=== PATIENT | male | born 1940 | race African-American/Black ===

== ENCOUNTER 2021-07-24 10:21 | Inpatient (IN) | payer OTHER ==
[~2021-07-24] VITALS: Ht 172.7 cm; Wt 68.5 kg
[2021-07-24] MEDS ORDERED: ACETAMINOPHEN 325MG TABLET PO STA (11:42)
[2021-07-24 12:57] LABS: BASOPHILS % 0.3 % (0.0-2.0); HEMATOCRIT. 44.4 % (42.0-52.0); HEMOGLOBIN. 13.3 g/dL (14.0-18.0); LYMPHOCYTES % 14.1 % (20.0-50.0); MEAN CORPUSCULAR HEMOGLOBIN 22.3 pg (28.0-32.0); MEAN CORPUSCULAR VOLUME 74.5 fL (80.0-94.0); MEAN PLATELET VOLUME 8.2 fl (7.4-10.4); MONOCYTES % 5.4 % (2.0-8.0); NEUTROPHILS % 80.2 % (40.0-76.0); PLATELET 285 x1000/uL (130-400); RED BLOOD CELL COUNT 5.96 mill/uL (4.7-6.1); RED CELL DISTRIBUTION WIDTH 16.2 % (11.6-14.6)
[2021-07-24 13:05] LABS: CHLORIDE 96 mEq/L (98-107)
[2021-07-24 19:04] LABS: CLARITY URINE CLEAR (CLEAR); COLOR URINE DARK YELLOW (YELLOW); KETONES URINE TRACE (NEGATIVE); PROTEIN URINE 2+ (NEGATIVE); SPECIFIC GRAVITY URINE 1.021 (1.005-1.030)
[2021-07-24 19:05] LABS: LEUKOCYTE ESTERASE URINE TRACE (NEGATIVE); NITRITE URINE NEGATIVE (NEGATIVE); OCCULT BLOOD URINE NEGATIVE (NEGATIVE)
[2021-07-24] MEDS ORDERED: MAGNESIUM 2 G PREMIX 50 ML IV NR (20:30)
[2021-07-24] MEDS ORDERED: POTASSIUM CHLORIDE INJ 40 MEQ in DEXT 5% WATER 500 ML IV ONE (20:30)
[2021-07-24] MEDS: KCL 20MEQ/100ML PREMIX 100 ML IV SCH ×2 (21:52→23:44)
[2021-07-25] MEDS: CLONIDINE 0.1MG TABLET PO PRN (01:52)
[2021-07-25] MEDS ORDERED: POTASSIUM CHLORIDE INJ 40 MEQ in DEXT 5% WATER 250 ML IV ONE ×2 (11:15→21:00)
[2021-07-25] MEDS ORDERED: ONDANSETRON HCL 4MG/2ML INJ IV PRN (11:45)
[2021-07-25] MEDS ORDERED: ACETAMINOPHEN 325MG TABLET PO PRN (11:45)
[2021-07-25 12:14] LABS: CHLORIDE 96 mEq/L (98-107)
[2021-07-25] MEDS ORDERED: VANCOMYCIN 1250MG in DEXTROSE 5% WATER 250ML IV ONE (12:30)
[2021-07-25] MEDS ORDERED: VANCOMYCIN 1500MG in DEXTROSE 5% WATER 250ML IV ONE (12:30)
[2021-07-25] MEDS: ENOXAPARIN 40MG/0.4ML SYR SUBCUT SCH (12:53)
[2021-07-25] MEDS: KCL 20MEQ/100ML X 2 FOR TOTAL KCL 40MEQ/200ML IV SCH ×2 (12:53→16:45)
[2021-07-25] MEDS ORDERED: VANCOMYCIN 1G PREMIX 200 ML IV SCH (14:00)
[2021-07-25 17:48] LABS: CHLORIDE 98 mEq/L (98-107)
[2021-07-25] MEDS ORDERED: POTASSIUM CHLORIDE 20MEQ TABLET SR PO NR (21:00)
[2021-07-25] MEDS: METOPROLOL TARTRATE 50MG TABLET PO SCH (21:47)
[2021-07-25] MEDS: KCL 20MEQ/100ML PREMIX 100 ML IV SCH (22:00)
[2021-07-26] MEDS ORDERED: VANCOMYCIN 750 MG in DEXT 5% WATER 250 ML IV SCH
[2021-07-26] MEDS: KCL 20MEQ/100ML PREMIX 100 ML IV SCH (00:30)
[2021-07-26 05:05] VITALS: BP 134/74
[2021-07-26 08:00] VITALS: BP 137/82
[2021-07-26] MEDS: METOPROLOL TARTRATE 50MG TABLET PO SCH ×2 (10:48→21:33)
[2021-07-26] MEDS ORDERED: VANCOMYCIN 1G PREMIX 200 ML IV SCH ×2 (11:00)
[2021-07-26] MEDS ORDERED: PNEUMOC 13-VAL CONJ-DIP CRM/PF 0.5 ML DISP.SYRIN IM ONE (11:45)
[2021-07-26 12:06] VITALS: BP 122/83
[2021-07-26] MEDS: ENOXAPARIN 40MG/0.4ML SYR SUBCUT SCH (12:20)
[2021-07-26] MEDS ORDERED: PNEUMOCOCCAL 23-VAL P-SAC VAC 0.5 ML IM ONE (15:00)
[2021-07-26 16:07] VITALS: BP 115/73
[2021-07-26 17:44] LABS: BASOPHILS % 0.4 % (0.0-2.0); EOSINOPHILS % 0.1 % (0.0-5.0); HEMATOCRIT. 45.7 % (42.0-52.0); HEMOGLOBIN. 13.2 g/dL (14.0-18.0); LYMPHOCYTES % 12.1 % (20.0-50.0); MEAN CORPUSCULAR HEMOGLOBIN 21.5 pg (28.0-32.0); MEAN CORPUSCULAR VOLUME 74.7 fL (80.0-94.0); MEAN PLATELET VOLUME 8.5 fl (7.4-10.4); MONOCYTES % 4.7 % (2.0-8.0); NEUTROPHILS % 82.7 % (40.0-76.0); PLATELET 261 x1000/uL (130-400); RED BLOOD CELL COUNT 6.12 mill/uL (4.7-6.1); RED CELL DISTRIBUTION WIDTH 16.3 % (11.6-14.6)
[2021-07-26 17:48] LABS: CHLORIDE 99 mEq/L (98-107)
[2021-07-26] MEDS: VANCOMYCIN 1G PREMIX 200 ML IV SCH (19:14)
[2021-07-26 20:00] VITALS: BP 145/74
[2021-07-27] VITALS (7 sets, daily range): BP systolic 118–174; BP diastolic 66–91
[2021-07-27] MEDS: CLONIDINE 0.1MG TABLET PO PRN (00:38)
[2021-07-27] MEDS: METOPROLOL TARTRATE 50MG TABLET PO SCH ×2 (08:43→20:55)
[2021-07-27] MEDS: VANCOMYCIN 1G PREMIX 200 ML IV SCH (11:23)
[2021-07-27] MEDS: ENOXAPARIN 40MG/0.4ML SYR SUBCUT SCH (11:23)
[2021-07-27] MEDS: MEROPENEM 1,000 MG in SODIUM CHLORIDE 0.9% 100 ML IV SCH (19:30)
[2021-07-28] VITALS: BP 131/80
[2021-07-28] MEDS: MEROPENEM 1,000 MG in SODIUM CHLORIDE 0.9% 100 ML IV SCH ×3 (02:40→19:19)
[2021-07-28 03:35] LABS: CHLORIDE 99 mEq/L (98-107)
[2021-07-28 04:00] VITALS: BP 146/82
[2021-07-28] MEDS: VANCOMYCIN 1G PREMIX 200 ML IV SCH (05:00)
[2021-07-28 08:00] VITALS: BP 108/67
[2021-07-28] MEDS: METOPROLOL TARTRATE 50MG TABLET PO SCH ×2 (09:00→22:00)
[2021-07-28] MEDS: ENOXAPARIN 40MG/0.4ML SYR SUBCUT SCH (11:54)
[2021-07-28 12:00] VITALS: BP 133/44
[2021-07-28 16:00] VITALS: BP 116/77
[2021-07-28 20:00] VITALS: BP 145/79
[2021-07-28] MEDS ORDERED: POTASSIUM CHLORIDE 20MEQ TABLET SR PO SCH (21:00)
[2021-07-29] VITALS: BP 136/85
[2021-07-29] MEDS: VANCOMYCIN 1G PREMIX 200 ML IV SCH ×2 (00:56→17:45)
[2021-07-29 04:00] VITALS: BP 142/86
[2021-07-29] MEDS: MEROPENEM 1,000 MG in SODIUM CHLORIDE 0.9% 100 ML IV SCH ×3 (04:06→21:41)
[2021-07-29 06:47] LABS: BASOPHILS % 0.4 % (0.0-2.0); EOSINOPHILS % 0.2 % (0.0-5.0); HEMATOCRIT. 42.7 % (42.0-52.0); HEMOGLOBIN. 12.8 g/dL (14.0-18.0); LYMPHOCYTES % 23.3 % (20.0-50.0); MEAN CORPUSCULAR VOLUME 73.6 fL (80.0-94.0); MEAN PLATELET VOLUME 8.9 fl (7.4-10.4); MONOCYTES % 5.1 % (2.0-8.0); PLATELET 298 x1000/uL (130-400); RED CELL DISTRIBUTION WIDTH 16.4 % (11.6-14.6)
[2021-07-29 06:50] LABS: CHLORIDE 100 mEq/L (98-107)
[2021-07-29 08:00] VITALS: BP 145/79
[2021-07-29] MEDS: METOPROLOL TARTRATE 50MG TABLET PO SCH ×2 (10:01→21:41)
[2021-07-29 12:00] VITALS: BP 123/71
[2021-07-29] MEDS: ENOXAPARIN 40MG/0.4ML SYR SUBCUT SCH (12:54)
[2021-07-29 16:00] VITALS: BP 129/61
[2021-07-29 20:00] VITALS: BP 124/76
[2021-07-30] VITALS: BP 143/76
[2021-07-30] MEDS: MEROPENEM 1,000 MG in SODIUM CHLORIDE 0.9% 100 ML IV SCH ×3 (03:50→19:26)
[2021-07-30 04:00] VITALS: BP 140/72
[2021-07-30 08:04] VITALS: BP 153/77
[2021-07-30] MEDS: METOPROLOL TARTRATE 50MG TABLET PO SCH ×2 (09:25→21:28)
[2021-07-30] MEDS: ENOXAPARIN 40MG/0.4ML SYR SUBCUT SCH (11:12)
[2021-07-30] MEDS: VANCOMYCIN 1G PREMIX 200 ML IV SCH (11:58)
[2021-07-30 12:20] VITALS: BP 120/68
[2021-07-30 16:31] VITALS: BP 143/81
[2021-07-30 20:00] VITALS: BP 150/96
[2021-07-31] VITALS: BP 152/73
[2021-07-31 04:00] VITALS: BP 131/74
[2021-07-31] MEDS: MEROPENEM 1,000 MG in SODIUM CHLORIDE 0.9% 100 ML IV SCH ×2 (04:03→13:42)
[2021-07-31 08:00] VITALS: BP 159/98
[2021-07-31] MEDS: METOPROLOL TARTRATE 50MG TABLET PO SCH ×2 (08:54→22:38)
[2021-07-31 12:25] VITALS: BP 119/58
[2021-07-31] MEDS: ENOXAPARIN 40MG/0.4ML SYR SUBCUT SCH (13:42)
[2021-07-31 16:09] VITALS: BP 146/77
[2021-07-31 20:00] VITALS: BP 146/66
[2021-07-31 20:27] LABS: BASOPHILS % 3.9 % (0.0-2.0); EOSINOPHILS % 2.4 % (0.0-5.0); HEMOGLOBIN. 11.9 g/dL (14.0-18.0); LYMPHOCYTES % 30.2 % (20.0-50.0); MEAN CORPUSCULAR HEMOGLOBIN 22.4 pg (28.0-32.0); MEAN CORPUSCULAR VOLUME 73.3 fL (80.0-94.0); MEAN PLATELET VOLUME 8.8 fl (7.4-10.4); MONOCYTES % 5.6 % (2.0-8.0); NEUTROPHILS % 57.9 % (40.0-76.0); PLATELET 332 x1000/uL (130-400); RED BLOOD CELL COUNT 5.32 mill/uL (4.7-6.1)
[2021-07-31 20:32] LABS: CHLORIDE 101 mEq/L (98-107)
[2021-07-31] MEDS ORDERED: DEXT 5% WATER + KCL 40MEQ/L 1,000 ML IV SCH (21:15)
[2021-07-31] MEDS ORDERED: KCL 20MEQ/100ML PREMIX 100 ML IV NR (22:00)
[2021-08-01] VITALS: BP 151/72
[2021-08-01] MEDS ORDERED: KCL 20MEQ/100ML PREMIX 100 ML IV NR ×2 (02:00)
[2021-08-01 04:00] VITALS: BP 135/70
[2021-08-01 08:00] VITALS: BP 165/87
[2021-08-01] MEDS: METOPROLOL TARTRATE 50MG TABLET PO SCH ×2 (09:58→21:26)
[2021-08-01] MEDS: MEROPENEM 1,000 MG in SODIUM CHLORIDE 0.9% 100 ML IV SCH ×2 (11:40→21:26)
[2021-08-01 12:00] VITALS: BP 125/62
[2021-08-01] MEDS: ENOXAPARIN 40MG/0.4ML SYR SUBCUT SCH (15:34)
[2021-08-01 16:00] VITALS: BP 139/78
[2021-08-01 20:00] VITALS: BP 159/70
[2021-08-02] VITALS: BP 148/84
[2021-08-02 04:00] VITALS: BP 153/76
[2021-08-02] MEDS: MEROPENEM 1,000 MG in SODIUM CHLORIDE 0.9% 100 ML IV SCH ×3 (04:28→16:50)
[2021-08-02 07:33] LABS: CHLORIDE 102 mEq/L (98-107)
[2021-08-02 08:15] VITALS: BP 152/88
[2021-08-02] MEDS ORDERED: POTASSIUM CHLORIDE 20MEQ TABLET SR PO SCH (08:30)
[2021-08-02] MEDS: METOPROLOL TARTRATE 50MG TABLET PO SCH ×2 (08:58→21:13)
[2021-08-02 12:10] VITALS: BP 132/62
[2021-08-02] MEDS: ENOXAPARIN 40MG/0.4ML SYR SUBCUT SCH (12:12)
[2021-08-02 20:00] VITALS: BP 155/79
[2021-08-03] VITALS: BP 142/72
[2021-08-03 04:00] VITALS: BP 158/80
[2021-08-03] MEDS: MEROPENEM 1,000 MG in SODIUM CHLORIDE 0.9% 100 ML IV SCH ×3 (04:29→20:28)
[2021-08-03 08:00] VITALS: BP 150/80
[2021-08-03] MEDS: METOPROLOL TARTRATE 50MG TABLET PO SCH ×2 (09:39→21:45)
[2021-08-03 12:00] VITALS: BP 137/85
[2021-08-03] MEDS: ENOXAPARIN 40MG/0.4ML SYR SUBCUT SCH (13:00)
[2021-08-03 16:00] VITALS: BP 155/82
[2021-08-03 20:00] VITALS: BP 151/90
[2021-08-04] VITALS: BP 138/75
[2021-08-04] MEDS: MEROPENEM 1,000 MG in SODIUM CHLORIDE 0.9% 100 ML IV SCH ×3 (03:56→19:39)
[2021-08-04 04:01] VITALS: BP 144/87
[2021-08-04] MEDS: METOPROLOL TARTRATE 50MG TABLET PO SCH ×2 (08:47→20:24)
[2021-08-04 12:00] VITALS: BP 134/82
[2021-08-04] MEDS: ENOXAPARIN 40MG/0.4ML SYR SUBCUT SCH (13:47)
[2021-08-04 16:00] VITALS: BP 130/78
[2021-08-04 20:00] VITALS: BP 136/77
[2021-08-04 23:54] VITALS: BP 136/63
[2021-08-05] MEDS: MEROPENEM 1,000 MG in SODIUM CHLORIDE 0.9% 100 ML IV SCH ×3 (02:51→19:30)
[2021-08-05 03:30] VITALS: BP 148/76
[2021-08-05 07:11] LABS: CHLORIDE 103 mEq/L (98-107)
[2021-08-05 08:00] VITALS: BP 150/77
[2021-08-05] MEDS: METOPROLOL TARTRATE 50MG TABLET PO SCH ×3 (10:11→21:12)
[2021-08-05 12:00] VITALS: BP 111/66
[2021-08-05] MEDS: ENOXAPARIN 40MG/0.4ML SYR SUBCUT SCH (12:25)
[2021-08-05 16:00] VITALS: BP 121/61
[2021-08-05 20:00] VITALS: BP 146/78
[2021-08-05] MEDS: POTASSIUM CHLORIDE 20MEQ TABLET SR PO NR ×2 (20:30→21:11)
[2021-08-06] VITALS (7 sets, daily range): BP systolic 120–161; BP diastolic 59–91
[2021-08-06] MEDS: METOPROLOL TARTRATE 50MG TABLET PO SCH (09:38)
[2021-08-06] MEDS: ENOXAPARIN 40MG/0.4ML SYR SUBCUT SCH (11:09)
[2021-08-06] MEDS ORDERED: TRAMADOL 50MG TABLET PO PRN (12:30)
[2021-08-06] MEDS ORDERED: POTASSIUM CHLORIDE 20MEQ TABLET SR PO NR (12:30)
== END 2021-08-06 18:44 | DRG 871 ==
LOC: ER 10:40 → MICUSO 20:14 → 6WST 07-26 03:50 → 6EST 08-06 10:16
PROVIDERS: ADMIT Internal Medicine; ATTEND Internal Medicine
DX: A41.51 Sepsis due to Escherichia coli [E. coli] (principal); L89.154 Pressure ulcer of sacral region, stage 4; E43 Unspecified severe protein-calorie malnutrition; E87.6 Hypokalemia; E78.00 Pure hypercholesterolemia, unspecified; E87.8 Other disorders of electrolyte and fluid balance, not elsewhere classified; F17.200 Nicotine dependence, unspecified, uncomplicated; Z20.822 Contact with and (suspected) exposure to COVID-19; I10 Essential (primary) hypertension; E78.5 Hyperlipidemia, unspecified; Z86.73 Personal history of transient ischemic attack (TIA), and cerebral infarction without residual deficits; Z68.23 Body mass index [BMI] 23.0-23.9, adult; S91.301A Unspecified open wound, right foot, initial encounter; S81.801A Unspecified open wound, right lower leg, initial encounter
CPT/HCPCS: 36415; 71045; 80048; 80053; 80202; 81003; 82040; 83605; 83735; 83880; 84134; 84145; 85025; 85651; 86140; 87426; 90670; 90732; 93005; 93923; 97162; 97530; 99285; J1650; J2185; J3370; J3475; J3480; J7050; J7060